=== PATIENT | female | born 1945 | race Caucasian/White ===

== ENCOUNTER → 2023-06-02 08:09 | Outpatient (REF) | payer MEDICARE, OTHER, SELFPAY ==
[2023-06-02 08:49] LABS: % Basophils 0.7 % (0-2); % Eosinophils 2.9 % (0-6); % Immature Granulocytes 0.4 % (0-0.5); % Monocytes 11.6 % (1.7-9.3); % Neutrophils 48.4 % (42.2-75.2); Absolute Eosinophils 0.2 10^3/uL (0-0.7); Absolute Monocytes 0.6 10^3/uL (0.1-0.6); Absolute Neutrophils 2.7 10^3/uL (1.4-6.5); Hematocrit 41.4 % (37.0-47.0); Hemoglobin 13.9 g/dL (12.0-16.0); Mean Corp Hgb Conc. 33.6 g/dL (33.0-37.0); Mean Corpuscular Hgb 30.3 pg (27.0-31.0); Mean Corpuscular Volume 90.4 fL (81.0-99.0); Mean Platelet Volume 11.2 fL (7.4-10.4); Nucleated Red Blood Cells % 0 %; Platelet Count 190 10^3/uL (130-400); Red Blood Cell Count 4.58 10^6/uL (4.20-5.40); Red Cell Dist. Width 12.7 % (11.5-14.5); White Blood Cell Count 5.5 10^3/uL (4.8-10.8)
[2023-06-02 08:49] LABS: Urine Albumin Negative (Neg - Trace); Urine Bilirubin Negative (Negative); Urine Character Clear (Clear); Urine Color Yellow; Urine Glucose Negative (Negative); Urine Ketone Negative (Negative); Urine Leukocyte Trace (Negative); Urine Nitrite Negative (Negative); Urine Occult Blood Trace (Negative); Urine Urobilinogen Negative (Neg - 1+)
[2023-06-02 09:03] LABS: Urine Bacteria Few (Negative)
[2023-06-02 09:04] LABS: Urine Red Blood Cell 0-2 /HPF (0-2)
[2023-06-02 09:56] LABS: ALT (SGPT) 26 U/L (0-35); AST (SGOT) 33 U/L (14-36); Albumin 4.3 g/dl (3.5-5.0); Alkaline Phosphatase 43 U/L (38-126); Blood Urea Nitrogen 18 mg/dl (7-17); Calcium 9.4 mg/dl (8.4-10.2); Carbon Dioxide 27 mmol/L (22-30); Chloride 107 mmol/L (98-107); Glucose 89 mg/dl (70-99); HDL Cholesterol 68 mg/dl; LDL Cholesterol, Calculated 95 mg/dl; Potassium 4.5 mmol/L (3.5-5.1); Sodium 139 mmol/L (135-145); Total Bilirubin 0.7 mg/dl (0.2-1.3); Total Cholesterol 177 mg/dl (50-199); Total Protein 6.5 g/dl (6.3-8.2); Triglyceride 74 mg/dl (10-149); Very Low Density Lipoprotein 14 mg/dl (0-30); eGFR > 60.00
[2023-06-02 10:55] LABS: TSH Reflex To Free T4 1.11 uIU/ml (0.47-4.68); Vitamin D, 25-OH*** 61.5 ng/mL (30-80)
== END ==
LOC: REG 08:09
PROVIDERS: ATTENDING PHYSICIAN Internal Medicine
DX: Z85.850 Personal history of malignant neoplasm of thyroid (principal); E03.8 Other specified hypothyroidism; E78.00 Pure hypercholesterolemia, unspecified; I83.90 Asymptomatic varicose veins of unspecified lower extremity; Z00.00 Encounter for general adult medical examination without abnormal findings; M81.0 Age-related osteoporosis without current pathological fracture
CPT/HCPCS: 36415; 80053; 80061; 81003; 81015; 82306; 84443; 85025

== ENCOUNTER → 2023-09-23 10:17 | Outpatient (REF) | payer MEDICARE, OTHER, SELFPAY | LOC: WDC 10:17 | PROVIDERS: ATTENDING PHYSICIAN Obstetrics & Gynecology; FAMILY PHYSICIAN Internal Medicine | DX: Z12.31 Encounter for screening mammogram for malignant neoplasm of breast (principal) | CPT/HCPCS: 77063; 77067 ==

== ENCOUNTER 2024-04-19 06:15 | Emergency (ER) | payer MEDICARE, OTHER, SELFPAY ==
[2024-04-19 06:18] VITALS: BP 136/88
[2024-04-19 09:05] VITALS: BP 124/75; BMI 22.0
--- NOTE | 2024-04-19 09:12 | ED.GENMED ---
History of Present Illness
General
Chief Complaint: Throat Problem
Source: patient and spouse
Exam Limitations: none
Time Seen by Provider: 04/19/24 08:10
Nursing documentation reviewed up to this point in time: agreed with
History of Present Illness
History of Present Illness:
78-year-old female with a past medical history of hypothyroidism, hyperlipidemia who presents to the emergency room for evaluation of cough and sore throat in the setting of COVID. Patient reports that she started getting ill on s day
3 of sickness. She says that she started with some chills and achiness as well as a cough�chills and achiness have resolved but cough has persisted. She says that over the past 24 hours she has developed a sore throat�she attributes it to coughing
very hard. Worse with swallowing. No change in voice, no drooling. She denies any chest pain or shortness of breath. She has not had any nausea, vomiting, diarrhea, abdominal pain. She denies any other complaints. She has been taking Aleve but
she feels sore throat is poorly controlled and so she came to the ER to be evaluated. She is not on Paxlovid; she says she had COVID in the past and took Paxlovid and did not feel it helped and so she does not wish to take it again.
Review of Systems
Review of Systems
All Other Systems: ROS reviewed and negative except as documented in HPI and ROS
Constitutional: Reports fever, fatigue and chills
EENT: Reports sore throat and runny nose
Respiratory: Reports cough; Denies trouble breathing
Cardiac: Denies chest pain
ABD/GI: Denies abdominal pain, nausea, vomiting or diarrhea
: Denies flank pain
Musculoskeletal: Reports muscle pain (Achiness); Denies neck pain or back pain
Neurological: Denies headache
Phy Exam
Physical Exam
Physical Exam:
General: Awake, alert, oriented x3; no acute distress
Head: Normocephalic, atraumatic
Eyes: Conjunctiva normal
Throat: Airway intact, handling secretions; midline uvula with some erythema but no edema, erythema of the posterior pharynx but no palatal petechiae, tonsillar enlargement or exudate
Neck: Trachea midline, supple without meningismus, full range of motion
Lungs: Clear to auscultation bilaterally, no wheezing, rales, rhonchi
Heart: Tachycardia with regular rhythm, no murmurs, gallops, or rubs
Abd: Soft, non distended, nontender
Neuro: No gross deficits
Skin: no rash
Extremities: Warm and well-perfused
Scores
Heart Failure Risk
Heart Failure Risk Score: Not Applicable
Heart Score for Chest Pain Patients
STEMI patient?: Not applicable
Withdrawal Assessment of Alcohol
Withdrawal Assessment Completed?: Not applicable
Sepsis
Sepsis Screening
Sepsis Assessment: Sepsis Ruled Out
Sepsis Screen
Sepsis Screen: Sepsis Ruled Out
Date: 04/21/24
Time: 20:17
Course
Orders/Labs/Results
Orders:
Orders
04/19/24 08:10
CR Chest - 2 Views Urgent
Comment:
Reason For Exam: cough
04/19/24 09:11
Acetaminophen [Tylenol] 1,000 mg PO NOW STA
Dexamethasone [Decadron] 10 mg PO NOW STA
04/19/24 09:17
Dexamethasone Sod Phosphate [Decadron] 10 mg IV NOW STA
Ketorolac [Toradol] 15 mg IV NOW STA
04/19/24 09:18
0.9% Sodium Chloride 1000 ml [Nss] 1,000 ml IV BOLUS
04/19/24 09:19
Benzonatate [Tessalon Perles] 200 mg PO ONCE ONE
04/19/24 09:27
COVID-19 Antigen Urgent
Source: Nasal Swab
Complete Blood Count/With Diff Urgent
Comprehensive Metabolic Panel Urgent
Influenza A+B Rapid Molecular Urgent
ELYSIA Source: Nasal Swab
Specimen Description:
04/19/24 10:47
Urinalysis Reflex To Culture Urgent
Date Specimen was Collected: 04/19/24
Time Specimen was Collected: 10:45
Urine Microscopic Reflex Cult Urgent
Abnormal Lab Results
04/19/24 04/19/24
09:27 10:47
MCHC 32.5 L g/dL
(33.0-37.0)
MPV 10.7 H fL
(7.4-10.4)
Absolute Lymphs (auto) 0.8 L 10^3/uL
(1.2-3.4)
Absolute Monos (auto) 1.2 H 10^3/uL
(0.1-0.6)
Lymphocytes % 10.2 L %
(20.5-51.1)
Monocytes % 15.0 H %
(1.7-9.3)
Glucose 113 H mg/dl
(70-99)
Alkaline Phosphatase 37 L U/L
(38-126)
Urine Ketones Trace A
(Negative)
Ur Occult Blood Reflex 3+ A
(Negative)
Leukocyte Esterase Rfl Trace A
(Negative)
Urine Bacteria (Reflex) Few A
(Negative)
SARS-CoV-2 Antigen Positive A
(Negative)
04/19/24 09:27
04/19/24 09:27
Vital Signs
Initial and Last Documented VS:
Initial Vital Signs
Temp Pulse Resp BP Pulse Ox
39.3 C H 118 24 136/88 98
04/19/24 06:18 04/19/24 06:18 04/19/24 06:18 04/19/24 06:18 04/19/24 06:18
Last Documented Vital Signs
Temp Pulse Resp BP Pulse Ox
36.9 C 85 18 107/63 95
04/19/24 11:26 12/25/24 11:26 04/19/24 11:26 04/19/24 11:26 04/19/24 11:26
MDM/Problems Addressed
Differential Diagnosis Includes:
Pharyngitis, bronchitis, pneumonia
MDM/Problems Addressed:
78-year-old female presents with persistent cough and sore throat in the setting of positive COVID test. She did have transient chills on day 1 that she says resolved�she says she has not had fever since but was noted to be febrile on arrival here.
She was also noted to be tachycardic. Physical exam as above. She does have pharyngitis likely COVID-related and this really is her main complaint and coughing exacerbates it. She had labs sent in triage which are pending. Chest x-ray reviewed
by me shows no pneumonia. Will plan to treat with Decadron for pharyngitis, can provide dose of Toradol as well as Tylenol. Patient declined Paxlovid. Will reassess after the above.
Labs reviewed: CBC and CMP unremarkable. COVID confirmed positive. Chest x-ray no pneumonia. Patient is feeling much better with symptomatic treatment here. Stable for discharge provided instructions on supportive care. All questions answered.
*Radiology
Radiology exam reviewed: preliminary read by ED provider
*Pulse Oximetry
Patient hypoxic: no
*Critical Care Note
Total Time (30-74mins, 75-104mins- exclusive of procedures): Not Applicable
Data Reviewed
Source: patient and spouse
ED Attending Note
-
Portions of this chart may have been created with voice recognition software.� Occasional wrong word or��sound alike� substitutions may have occurred due to the inherent limitations of voice recognition software.
Discharge Plan
Departure
Patient Disposition: Home (Routine Discharge)
Date of Disposition: 04/19/24
Time of Disposition: 11:10
Patient with high blood pressure during this ER visit?: No
Discharge Problem:
COVID-19, Pharyngitis, acute
Instructions: Sore Throat, Adult (DC), COVID-19 in adults - Discharge instructions
Prescriptions:
New
benzonatate 200 mg capsule
200 mg PO TID PRN (Reason: Cough) Qty: 20 0RF
acetaminophen 500 mg capsule
1,000 mg PO Q6H PRN (Reason: fever or pain) Qty: 30 0RF
ibuprofen 400 mg tablet
400 mg PO Q6H PRN (Reason: fever or pain) Qty: 30 0RF
Referrals:
Leon Knox MD [Family Provider] -
Activity Restrictions/Additional Instructions:
Thank you for visiting the Emergency Department at [facility].
1. Please schedule a follow up appointment as directed. Call first thing tomorrow morning to make an appointment.
2. If indicated, please take your medications as instructed and indicated on discharge paperwork.
3. If any of your symptoms do not improve, or persist, or become more severe within 6-12 hours, please return to the emergency department for further care.
4. Please return to the emergency department if you develop a headache, neck pain/stiffness, fever greater than 100.4F, chest pain, shortness of breath, persistent nausea, vomiting, slurred speech, difficulty walking, numbness/tingling, weakness,
signs of infection or any other symptoms that are worrisome to you.
Please call [phone] if you have any questions.
Interventions
Interventions:
*Risk Screen - Suicide Last Done: 04/19/24 06:18
*General Assessment Last Done: 04/19/24 09:05
*Neglect/Abuse Screening Last Done: 04/19/24 06:18
*ED COVID-19 Vaccine History Last Done: 04/19/24 09:05
*Nursing Disposition Last Done: 04/19/24 11:29
ED- Pulmonary Assessment Last Done: 04/19/24 09:05
Discharge Date and Time
Print Language: NIGERIAN
[2024-04-19] MEDS: NSS 1000 IV (09:29)
[2024-04-19] MEDS: DECADRON 10 MG IV (09:35)
[2024-04-19] MEDS: TYLENOL 1000 MG PO (09:35)
[2024-04-19] MEDS: TESSALON PERLES 200 MG PO (09:35)
[2024-04-19] MEDS: TORADOL 15 MG IV (09:36)
[2024-04-19 09:40] LABS: % Basophils 0.1 % (0-2); % Immature Granulocytes 0.1 % (0-0.5); % Lymphocytes 10.2 % (20.5-51.1); % Neutrophils 74.6 % (42.2-75.2); Absolute Lymphocytes 0.8 10^3/uL (1.2-3.4); Absolute Monocytes 1.2 10^3/uL (0.1-0.6); Absolute Neutrophils 5.9 10^3/uL (1.4-6.5); Hematocrit 40.9 % (37.0-47.0); Hemoglobin 13.3 g/dL (12.0-16.0); Mean Corp Hgb Conc. 32.5 g/dL (33.0-37.0); Mean Corpuscular Hgb 29.6 pg (27.0-31.0); Mean Corpuscular Volume 90.9 fL (81.0-99.0); Mean Platelet Volume 10.7 fL (7.4-10.4); Nucleated Red Blood Cells % 0 %; Platelet Count 154 10^3/uL (130-400); Red Cell Dist. Width 12.6 % (11.5-14.5); White Blood Cell Count 7.9 10^3/uL (4.8-10.8)
[2024-04-19 09:50] LABS: ALT (SGPT) 21 U/L (0-35); AST (SGOT) 32 U/L (14-36); Alkaline Phosphatase 37 U/L (38-126); Blood Urea Nitrogen 16 mg/dl (7-17); Calcium 8.6 mg/dl (8.4-10.2); Carbon Dioxide 26 mmol/L (22-30); Chloride 102 mmol/L (98-107); Estimated Creatinine Clearance 46 ml/min; Glucose 113 mg/dl (70-99); Potassium 4.1 mmol/L (3.5-5.1); Sodium 136 mmol/L (135-145); Total Bilirubin 0.6 mg/dl (0.2-1.3); Total Protein 6.6 g/dl (6.3-8.2); eGFR > 60.00
[2024-04-19 10:12] LABS: COVID-19 Antigen Positive (Negative)
[2024-04-19 10:54] LABS: Urine Albumin Trace (Neg - Trace); Urine Bilirubin Negative (Negative); Urine Character Clear (Clear); Urine Color Yellow; Urine Glucose Negative (Negative); Urine Ketone Trace (Negative); Urine Leukocyte Trace (Negative); Urine Nitrite Negative (Negative); Urine Occult Blood 3+ (Negative); Urine Urobilinogen Negative (Neg - 1+)
[2024-04-19 11:11] LABS: Urine Mucus Few
[2024-04-19 11:12] LABS: Urine Hyaline Cast 0-2 /LPF (0-2); Urine Urothelial Cell 0-2 /LPF (FEW)
[2024-04-19 11:13] LABS: Urine Red Blood Cell 0-2 /HPF (0-2)
[2024-04-19 11:14] LABS: Urine Bacteria Few (Negative); Urine White Cell 0-2 /HPF (0-5)
[2024-04-19 11:26] VITALS: BP 107/63
== END 2024-04-19 11:29 | disposition home or self-care (01) ==
LOC: EMR 06:15
PROVIDERS: EMERGENCY PHYSICIAN Emergency Medicine; FAMILY PHYSICIAN Internal Medicine
DX: U07.1 COVID-19 (principal); J02.9 Acute pharyngitis, unspecified; Z11.52 Encounter for screening for COVID-19; R00.0 Tachycardia, unspecified; E03.9 Hypothyroidism, unspecified; E78.5 Hyperlipidemia, unspecified
CPT/HCPCS: 99284; 96374; 96375; 71046; 80053; 81003; 81015; 85025; 87502; 87811

== ENCOUNTER → 2024-09-06 07:53 | Outpatient (REF) | payer MEDICARE, OTHER, SELFPAY ==
[2024-09-06 10:39] LABS: Vitamin D, 25-OH*** 54.7 ng/mL (30-80)
== END ==
LOC: RAD 07:53
PROVIDERS: ATTENDING PHYSICIAN Internal Medicine; FAMILY PHYSICIAN Internal Medicine
DX: M81.0 Age-related osteoporosis without current pathological fracture (principal)
CPT/HCPCS: 36415; 77080; 82306

== ENCOUNTER 2024-09-26 06:20 | Day surgery (SDC) | payer MEDICARE, OTHER, SELFPAY | END 2024-09-26 14:05 | disposition home or self-care (01) | LOC: GI 06:20 | PROVIDERS: ATTENDING PHYSICIAN Internal Medicine Gastroenterology | DX: Z12.11 Encounter for screening for malignant neoplasm of colon (principal); K64.8 Other hemorrhoids; K57.30 Diverticulosis of large intestine without perforation or abscess without bleeding; D12.0 Benign neoplasm of cecum; D12.2 Benign neoplasm of ascending colon; Z86.0100 Personal history of colon polyps, unspecified | CPT/HCPCS: 45380; 88305 ==

== ENCOUNTER → 2024-12-08 14:42 | Outpatient (REF) | payer MEDICARE, OTHER, SELFPAY | LOC: WDC 14:42 | PROVIDERS: ATTENDING PHYSICIAN Obstetrics & Gynecology; FAMILY PHYSICIAN Internal Medicine | DX: Z12.31 Encounter for screening mammogram for malignant neoplasm of breast (principal) | CPT/HCPCS: 77063; 77067 ==